=== PATIENT | female | born 1970 | race Caucasian/White ===

== ENCOUNTER 2020-09-02 21:11 | Emergency (ER) | payer OTHER ==
[~2020-09-02] VITALS: Ht 152.4 cm; Wt 100.0 kg
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
[2020-09-02 21:51] LABS: BASO # 0.1 x10^3/uL (0.0-0.2); BASO % 1 % (0-3); EOS # 0.2 x10^3/uL (0.0-0.7); EOS % 3 % (0-3); HEMATOCRIT 43.1 % (36.0-47.0); HEMOGLOBIN 14.8 g/dL (12.0-15.5); LYMPH # 2.2 x10^3/uL (1.0-4.8); LYMPH % 31 % (24-48); MEAN CORPUSCULAR HEMOGLOBIN 32 pg (25-35); MEAN CORPUSCULAR HGB CONC 34 g/dL (31-37); MEAN CORPUSCULAR VOLUME 93 fL (79-100); MONO # 0.7 x10^3/uL (0.0-1.1); MONO % 10 % (0-9); NEUT # 3.9 x10^3/uL (1.8-7.7); NEUT % 55 % (31-73); PLATELET COUNT 284 x10^3/uL (140-400); RED BLOOD COUNT 4.65 x10^6/uL (3.50-5.40); RED CELL DISTRIBUTION WIDTH 13.5 % (11.5-14.5)
[2020-09-02] MEDS ORDERED: IV NORMAL SALINE 1000ML BAG 1,000 ML IV ONE ×2 (22:00→23:00)
[2020-09-02 22:11] LABS: CREATININE 1.1 mg/dL (0.6-1.0); GFR 52.4; POTASSIUM 3.9 mmol/L (3.5-5.1)
[2020-09-02 22:14] LABS: ALBUMIN 3.7 g/dL (3.4-5.0); TOTAL BILIRUBIN 0.3 mg/dL (0.2-1.0); TOTAL PROTEIN 7.4 g/dL (6.4-8.2)
[2020-09-02 22:45] LABS: BILIRUBIN,URINE NEGATIVE (NEG); CLARITY,URINE CLEAR; COLOR,URINE YELLOW; NITRITE,URINE NEGATIVE (NEG); PH,URINE 5.5 (<5.0-8.0); PROTEIN,URINE NEGATIVE (NEG-TRACE); UROBILINOGEN,URINE 0.2 mg/dL (0.2 mg/dL)
[2020-09-02] MEDS ORDERED: CONTRAST GIVEN. MC PRN (22:45)
[2020-09-02 22:54] LABS: BACTERIA,URINE MODERATE /HPF (0-FEW); RBC,URINE 0 /HPF (0-2)
[2020-09-02] MEDS ORDERED: IOHEXOL 300 MG/ML 100ML VIAL. IV ONE (23:00)
--- NOTE | 2020-09-02 23:19 | RAD ---
CT chest abdomen pelvis with contrast dated 09/02/2020. No comparison available. CLINICAL INDICATION: Chest pain. Abdominal pain. TECHNIQUE: Contiguous axial imaging the chest abdomen pelvis performed after the administration of 60 cc Omnipaq ue 300. One or more of the following individualized dose reduction techniques were utilized for this examinat ion: 1. Automated exposure control 2. Adjustment of the mA and/or kV according to patient size 3. Use of iterative reconstruction technique. FINDINGS: Central airways are patent. Lungs are clear. No consolidation or pleural effusion. No pneumothorax. Heart size within normal limits. No pericardial effusion. There are borderline enlarged pretracheal a nd subcarinal lymph nodes measuring about 8 mm short axis. No hilar or axillary lymphadenopathy. Thyr oid gland is unremarkable. Liver, spleen, pancreas, adrenal glands and kidneys are unremarkable. No hydronephrosis. 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 Gallbladder surgically absent. Liver is of mild diffuse low density suggesting fatty infiltrati on. Unopacified GI tract normal in caliber and contour. No focal bowel wall thickening. Scattered diverti cula with throughout the colon. No paracolonic inflammatory changes. Appendix normal in caliber. No a scites or lymphadenopathy. Abdominal aorta normal in caliber. Images of pelvis show nondistended urinary bladder. Uterus and adnexa are unremarkable. No free fluid or lymphadenopathy. Bone windows show no acute findings. Multilevel spondylosis. IMPRESSION: 1. No traumatic abnormality of chest abdomen pelvis. 2. Clear lungs. 3. Small complex cyst left kidney Electronically signed by: William Bryan MD (09/02/2020 11:16 PM) [facility]
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
[2020-09-03] MEDS ORDERED: MORPHINE SULFATE 4 MG/ML VIAL. IV ONE
[2020-09-03] MEDS ORDERED: ONDANSETRON PF 4 MG/2 ML VIAL. IVP ONE
[2020-09-03 00:04] VITALS: BP 148/84
== END 2020-09-03 00:11 | disposition home or self-care (01) ==
LOC: ER 21:11
DX: S20.212A Contusion of left front wall of thorax, initial encounter (principal); S00.93XA Contusion of unspecified part of head, initial encounter; R10.9 Unspecified abdominal pain; M54.2 Cervicalgia; N28.1 Cyst of kidney, acquired; M25.552 Pain in left hip; V53.6XXA Passenger in pick-up truck or van injured in collision with car, pick-up truck or van in traffic accident, initial encounter; Y92.481 Parking lot as the place of occurrence of the external cause; Y93.89 Activity, other specified; Y99.8 Other external cause status
CPT/HCPCS: 36415; 70450; 71260; 72125; 74177; 80053; 81001; 81025; 82150; 85025; 87086; 96361; 96374; 96375; 99285; J2270; J2405; J7030; Q9967